=== PATIENT | male | born 1950 | race Caucasian/White ===

== ENCOUNTER 2022-05-10 10:41 | Outpatient (CLI) | payer MEDICARE ==
[2022-05-10 12:01] LABS: #Basophils 0.1 10x3/uL (0.0-0.2); #Eosinphils 0.2 10x3/uL (0.0-0.5); #Monocytes 0.7 10x3/uL (0.0-1.1); #Neutrophils 8.9 10x3/uL (1.5-8.4); %Basophils 0.6 % (0.0-2.0); %Lymphocytes 8.5 % (18.0-47.0); %Monocytes 6.8 % (0.0-10.0); %Neutrophils 81.7 % (40.0-75.0); Hemoglobin 15.4 g/dL (13.5-17.5); Mean Corpuscular HGB CONC 34.2 g/dL (32.0-36.0); Mean Corpuscular Hemoglobin 30.2 pg (27.0-33.0); Mean Corpuscular Volume 88.2 fl (81.2-95.1); Mean Platelet Volume 10.1 fl (7.4-10.4); Platelet Count 295 10x3/uL (150-450); RBC Distribution Width 14.1 % (11.5-14.5); White Blood Cell (WBC) Count 10.9 10x3/uL (3.5-10.5)
[2022-05-10 12:17] LABS: Anion Gap 16 mmol/L (10-20); BUN (Urea Nitrogen) 17 mg/dL (8.4-25.7); Calc. Creatinine Clearance 0 mL/min (70-130); Calcium 9.4 mg/dL (7.8-10.44); Carbon Dioxide 27 mmol/L (23-31); Chloride 99 mmol/L (98-107); Estimated GFR 83; Glucose 103 mg/dL (83-110); Potassium 4.1 mmol/L (3.5-5.1); Sodium 138 mmol/L (136-145)
== END 2022-05-10 10:42 | disposition home or self-care (01) ==
LOC: LABBT 10:41
PROVIDERS: ATTEND Orthopaedic Surgery
DX: Z01.818 Encounter for other preprocedural examination (principal); S46.012A Strain of muscle(s) and tendon(s) of the rotator cuff of left shoulder, initial encounter; Z20.822 Contact with and (suspected) exposure to COVID-19
CPT/HCPCS: 80048; 85025; 87811; 93005; 93010

== ENCOUNTER 2022-05-13 05:50 | Day surgery (SDC) | payer MEDICARE ==
[2022-05-11 13:00] VITALS: BMI 35.9
[2022-05-13] MEDS ORDERED: Tranexamic Acid 1,000 MG/10 ML VIAL ONE (06:13)
[2022-05-13] MEDS ORDERED: Sodium Chloride 0.9% 100 ML ONE ×2 (06:13→07:18)
[2022-05-13] MEDS ORDERED: Vancomycin (BATCH) 1.5 GRAM/300 ML BAG ONE (06:13)
[2022-05-13] MEDS ORDERED: Lidocaine 2% Jelly 5 ML TUBE ONE (06:35)
[2022-05-13] MEDS ORDERED: fentaNYL Citrate/PF 100 MCG/2 ML SYRINGE ONE (06:35)
[2022-05-13] MEDS ORDERED: Fentanyl 100 MCG/2 ML VIAL ONE ×3 (07:01→10:00)
[2022-05-13] MEDS ORDERED: Midazolam HCl 2 mg/2 ml Vial ONE (07:01)
[2022-05-13] MEDS ORDERED: PROPOFOL 200 MG/20 ML VIAL ONE (07:17)
[2022-05-13] MEDS ORDERED: Bupivacaine HCl 0.5%/Epinephrine 1:200,000/PF 30 ml Vial ONE (07:17)
[2022-05-13] MEDS ORDERED: Ondansetron PF 4 MG/2 ML Vial ONE (07:17)
[2022-05-13] MEDS ORDERED: Dexamethasone 20 MG/5 ML VIAL ONE (07:17)
[2022-05-13] MEDS ORDERED: Albuterol Sulfate HFA (OR ONLY) ONE ×2 (07:17→07:55)
[2022-05-13] MEDS ORDERED: Rocuronium Bromide 10 MG/ML (10ML VIAL) ONE (07:17)
[2022-05-13] MEDS ORDERED: CEFAZOLIN 2 GM VIAL ONE (07:18)
[2022-05-13] MEDS ORDERED: Fentanyl 100 MCG/2 ML VIAL IV PRN (07:43)
[2022-05-13] MEDS ORDERED: Ropivacaine 0.2% 550 ML 550 ML NERVE BLCK SCH (07:45)
[2022-05-13] MEDS ORDERED: Ondansetron PF 4 MG/2 ML Vial IVP PRN (07:45)
[2022-05-13] MEDS ORDERED: HYDROcodone/Acetaminophen 10/325 mg Tablet PO PRN ×2 (07:45)
[2022-05-13] MEDS ORDERED: Promethazine HCl 25 MG/ML VIAL IM PRN (07:45)
[2022-05-13] MEDS ORDERED: Zolpidem Tartrate 5 MG TAB PO PRN (07:45)
[2022-05-13] MEDS ORDERED: traMADol HCl 50 MG TAB PO PRN ×2 (07:45)
[2022-05-13] MEDS ORDERED: Norepinephrine 4 MG/4 ML VIAL ONE (07:55)
[2022-05-13] MEDS ORDERED: SUGAMMADEX SODIUM 200 MG/2 ML VIAL ONE (09:17)
[2022-05-13] MEDS ORDERED: hydrALAZINE 20 MG/ML VIAL ONE (09:48)
[2022-05-13] MEDS ORDERED: HYDROcodone/Acetaminophen 5/325 mg Tablet ONE (10:42)
[2022-05-13] MEDS ORDERED: Ketorolac Tromethamine 30 MG/ML VIAL IVP SCH (12:00)
== END 2022-05-13 11:45 | disposition home or self-care (01) ==
LOC: SDC 05:50
PROVIDERS: ATTEND Orthopaedic Surgery
PROC: 3E0T3BZ Introduction of Anesthetic Agent into Peripheral Nerves and Plexi, Percutaneous Approach (ICD-10-PCS; principal; 2022-05-13)
PROC: 0RRK00Z Replacement of Left Shoulder Joint with Reverse Ball and Socket Synthetic Substitute, Open Approach (ICD-10-PCS; 2022-05-13)
DX: S46.012A Strain of muscle(s) and tendon(s) of the rotator cuff of left shoulder, initial encounter (principal); M19.012 Primary osteoarthritis, left shoulder; I10 Essential (primary) hypertension; E78.00 Pure hypercholesterolemia, unspecified; E89.0 Postprocedural hypothyroidism; M10.9 Gout, unspecified; F17.290 Nicotine dependence, other tobacco product, uncomplicated; Z79.890 Hormone replacement therapy; Z79.899 Other long term (current) drug therapy; Z96.653 Presence of artificial knee joint, bilateral; X50.9XXA Other and unspecified overexertion or strenuous movements or postures, initial encounter
CPT/HCPCS: 23472; 64416; A4306; J3370; C1713; C1776; J0360; J0690; J1100; J2250; J2405; J2704; J2795; J3010; J3490

== ENCOUNTER 2022-06-24 08:00 | Day surgery (SDC) | payer MEDICARE ==
[2022-06-23 13:51] VITALS: BMI 35.2
[~2022-06-24 08:00] MED LIST: Fluorouracil 100 MG, Enoxaparin Sodium 25 MG, EPINEPHrine 0.3 MG in Ophthalmic Irrigati... IRR SCH; Midazolam HCl 2 mg/2 ml Vial ONE; fentaNYL Citrate/PF 100 MCG/2 ML SYRINGE ONE
[2022-06-24] MEDS ORDERED: Phenylephrine 2.5% Ophth Soln 5 ML BOT ONE (08:31)
[2022-06-24] MEDS ORDERED: Cyclopentolate 1% Opth Drop 2 ML BOT ONE (08:31)
[2022-06-24] MEDS ORDERED: PROPOFOL 200 MG/20 ML VIAL ONE (09:50)
[2022-06-24] MEDS ORDERED: Triamcinolone 40 MG/ML VIAL ONE (09:50)
[2022-06-24] MEDS ORDERED: Maxitrol 0.1% Opth Oint 3.5 GM TUBE ONE (09:50)
[2022-06-24] MEDS ORDERED: Enoxaparin Sodium 30 MG/0.3 ML SYRINGE ONE (09:50)
[2022-06-24] MEDS ORDERED: Bupivacaine 0.75% 10 ML VIAL ONE (09:50)
[2022-06-24] MEDS ORDERED: Lidocaine 1% PF 5 ML VIAL ONE (09:50)
[2022-06-24] MEDS ORDERED: Lidocaine 4% PF 5 ML AMP ONE (09:50)
[2022-06-24] MEDS ORDERED: CEFAZOLIN 1 GM VIAL ONE (09:50)
== END 2022-06-24 11:29 | disposition home or self-care (01) ==
LOC: SDC 08:00
PROVIDERS: ATTEND Ophthalmology Retina Specialist
PROC: 08T43ZZ Resection of Right Vitreous, Percutaneous Approach (ICD-10-PCS; principal; 2022-06-24)
PROC: 08NE3ZZ Release Right Retina, Percutaneous Approach (ICD-10-PCS; 2022-06-24)
DX: H33.011 Retinal detachment with single break, right eye (principal); E89.0 Postprocedural hypothyroidism; E78.5 Hyperlipidemia, unspecified; I10 Essential (primary) hypertension; Z79.890 Hormone replacement therapy; Z79.899 Other long term (current) drug therapy; Z98.41 Cataract extraction status, right eye; Z98.42 Cataract extraction status, left eye; Z96.1 Presence of intraocular lens
CPT/HCPCS: 67025; J0171; J0690; J1650; J2250; J2704; J3301; J3490; J9190

== ENCOUNTER 2022-07-08 09:47 | Day surgery (SDC) | payer MEDICARE ==
[2022-07-07 10:54] VITALS: BMI 35.2
[~2022-07-08 09:47] MED LIST changes: -Midazolam HCl 2 mg/2 ml Vial ONE; -fentaNYL Citrate/PF 100 MCG/2 ML SYRINGE ONE
[2022-07-08] MEDS ORDERED: Cyclopentolate 1% Opth Drop 2 ML BOT ONE (10:35)
[2022-07-08] MEDS ORDERED: Phenylephrine 2.5% Ophth Soln 5 ML BOT ONE (10:35)
[2022-07-08] MEDS ORDERED: EPINEPHrine 0.3 MG in Ophthalmic Irrigation Solution 500 ML IRR SCH (11:00)
[2022-07-08] MEDS ORDERED: Meperidine HCl/PF 25 MG/ML VIAL ONE (14:41)
[2022-07-08] MEDS ORDERED: FENTANYL 50 MCG/ML 1 ML VIAL ONE (14:51)
== END 2022-07-08 15:45 | disposition home or self-care (01) ==
LOC: SDC 09:47
PROVIDERS: ATTEND Ophthalmology Retina Specialist
PROC: 08T43ZZ Resection of Right Vitreous, Percutaneous Approach (ICD-10-PCS; principal; 2022-07-08)
PROC: 08U03JZ Supplement of Right Eye with Synthetic Substitute, Percutaneous Approach (ICD-10-PCS; 2022-07-08)
DX: H33.021 Retinal detachment with multiple breaks, right eye (principal); E89.0 Postprocedural hypothyroidism; E78.5 Hyperlipidemia, unspecified; I10 Essential (primary) hypertension; M10.9 Gout, unspecified; F17.290 Nicotine dependence, other tobacco product, uncomplicated; Z79.890 Hormone replacement therapy; Z79.899 Other long term (current) drug therapy; Z98.41 Cataract extraction status, right eye; Z98.42 Cataract extraction status, left eye
CPT/HCPCS: 67108; J3010; C1776; C1814; J0171; J1650; J2175; J9190

== ENCOUNTER 2022-10-07 06:34 | Day surgery (SDC) | payer MEDICARE ==
[2022-10-05 13:32] VITALS: BMI 34.5
[~2022-10-07 06:34] MED LIST changes: +EPINEPHrine 0.3 MG in Ophthalmic Irrigation Solution 500 ML IRR SCH; -Fluorouracil 100 MG, Enoxaparin Sodium 25 MG, EPINEPHrine 0.3 MG in Ophthalmic Irrigati... IRR SCH
[2022-10-07] MEDS ORDERED: fentaNYL PF 100 MCG/2 ML SYRINGE ONE (06:35)
[2022-10-07] MEDS ORDERED: Midazolam HCl 2 mg/2 ml Vial ONE (06:35)
[2022-10-07] MEDS ORDERED: Phenylephrine 2.5% Ophth Soln 5 ML BOT ONE (06:59)
[2022-10-07] MEDS ORDERED: Cyclopentolate 1% Opth Drop 2 ML BOT ONE (06:59)
[2022-10-07] MEDS ORDERED: CEFAZOLIN 1 GM VIAL ONE (08:07)
[2022-10-07] MEDS ORDERED: PROPOFOL 200 MG/20 ML VIAL ONE (08:07)
[2022-10-07] MEDS ORDERED: Triamcinolone 40 MG/ML VIAL ONE (08:07)
[2022-10-07] MEDS ORDERED: Lidocaine 1% PF 5 ML VIAL ONE (08:07)
[2022-10-07] MEDS ORDERED: Maxitrol 0.1% Opth Oint 3.5 GM TUBE ONE (08:07)
[2022-10-07] MEDS ORDERED: Bupivacaine 0.75% 10 ML VIAL ONE (08:07)
[2022-10-07] MEDS ORDERED: Lidocaine 4% PF 5 ML AMP ONE (08:07)
== END 2022-10-07 09:39 | disposition home or self-care (01) ==
LOC: SDC 06:34
PROVIDERS: ATTEND Ophthalmology Retina Specialist
PROC: 08T43ZZ Resection of Right Vitreous, Percutaneous Approach (ICD-10-PCS; principal; 2022-10-07)
DX: H43.391 Other vitreous opacities, right eye (principal); E89.0 Postprocedural hypothyroidism; E78.5 Hyperlipidemia, unspecified; I10 Essential (primary) hypertension; M10.9 Gout, unspecified; F17.290 Nicotine dependence, other tobacco product, uncomplicated; Z79.890 Hormone replacement therapy; Z79.899 Other long term (current) drug therapy
CPT/HCPCS: J0171; J0690; J2250; J2704; J3301; J3490